=== PATIENT | female | born 1995 ===

== ENCOUNTER 2025-05-21 13:52 | Inpatient (IN) ==
[2025-05-21 14:26] LABS: RUPTURE OF MEMBRANES PLUS POSITIVE (NEGATIVE)
--- NOTE | 2025-05-21 14:37 | PROVIDER PROGRESS NOTE ---
HPI Current : Vital Signs Temperature 36.8 C 05/21/25 14:11 Pulse Rate 70 05/21/25 14:11 Respiratory Rate 16 05/21/25 14:11 Blood Pressure 133/82 H 05/21/25 14:11 Procedures Findings: 30 yo @ 36+5 weeks gestation presents to L&D following clinic encounter with suspected low ALNDRY and possible leaking of amniotic fluid. Reactive NST upon presentation FHT 140, moderate variability, + accelerations, - decelerations. Contractions q 2-3 minutes. Identifiable by patient but not painful. ROM + positive. Will admit for GBS prophylaxis to begin.
[2025-05-21] MEDS ORDERED: TRANEXAMIC ACID IN NACL 1,000 MG/100 ML BAG IV PRN (14:54)
[2025-05-21] MEDS ORDERED: TERBUTALINE 1 MG/ML VIAL SUBQ PRN (14:54)
[2025-05-21] MEDS ORDERED: CARBOPROST TROMETHAMINE 250 MCG/ML VIAL IM PRN (14:54)
[2025-05-21] MEDS ORDERED: LABETALOL 20 MG/4 ML SYRINGE IVP PRN ×3 (14:54)
[2025-05-21] MEDS ORDERED: fentaNYL 100 MCG/2 ML VIAL IVP PRN (14:54)
[2025-05-21] MEDS ORDERED: OXYTOCIN 10 UNIT/ML VIAL IM PRN (14:54)
[2025-05-21] MEDS ORDERED: hydrALAZINE INJ 20 MG/ML VIAL IVP PRN (14:54)
[2025-05-21] MEDS ORDERED: METHYLERGONOVINE 0.2 MG/ML VIAL IM PRN (14:54)
[2025-05-21] MEDS ORDERED: FERROUS SULFATE 325 MG TABLET PO SCH (15:00)
[2025-05-21] MEDS: SODIUM CHLORIDE FLUSH 0.9% 10 ML SYRINGE IVP PRN (15:18)
[2025-05-21] MEDS: AMPICILLIN 2 GM in SODIUM CHLORIDE 0.9% MINIBAG 100 ML IV ONE (15:22)
[2025-05-21 15:28] LABS: HCT - HEMATOCRIT 35.2 % (37.0-47.0); HGB - HEMOGLOBIN 11.5 g/dL (12.0-16.0); MEAN PLATELET VOLUME 9.9 fL (7.9-10.8); NRBC ABSOLUTE COUNT (AUTO) 0.00 x10^3/uL; NUCLEATED RED BLOOD CELLS AUTO 0.0 /100WBC; PLT - PLATELET COUNT 327 10^3/uL (130-450); RED CELL DISTRIBUTION WIDTH 13.7 % (12.0-15.0)
[2025-05-21 15:36] LABS: ALT ALANINE AMINOTRANSFERASE 8.0 IU/L (10-60); AST ASPARTATE AMINOTRANSFERASE 15.0 IU/L (10-42); BUN - BLOOD UREA NITROGEN 6.0 mg/dL (6-20); CARBON DIOXIDE - CO2 22.0 mmol/L (21-32); CREATININE 0.4 mg/dL (0.6-1.3); GFR - MDRD 185.0 (>89)
[2025-05-21] MEDS: SODIUM CHLORIDE FLUSH 0.9% 10 ML SYRINGE IVP SCH (16:28)
--- NOTE | 2025-05-21 17:29 | HISTORY & PHYSICAL EXAMINATION ---
Admit History Smoking Status: Never smoker Other Maternal History Other Maternal History: HPI: This 30 yo @36+5 weeks by LMP and confirmed by 10+2 week ultrasound. She was able to get sleep last night but the pain woke her up and they continued to become stronger and closer together. Upon arrival her cervical exam was deferred. SVE 4/80/-2 @ 1830 on day of admission. VTX by BSUS in the clinic and SVE. Feels things have progressed since her arrival to the unit but contractions are still tolerable. Reviewed risk of infection with prolonged rupture. Agreeable to initiating oxytocin if not progressing by 24 hours following suspected rupture of membranes. Timing of rupture unclear as the only fluid she noticed with light pink and mucousy. Munger the mucous change about 0430 so for timing sake, will call ROM 0430 on 05/21/2025. Reviewed that risks of labor include but are not limited to section, prolonged labor, vacuum extraction, episotomy, hemorrhage, and additional risks exist re: prolonged second stage related to extraction. Reviewed back up OBGYN is available for consultations, emergency interventions and transfer of care if indicted. She has been a patient of [facility] for the duration of her which has remained uncomplicated with the exception of hx of precipitous delivery, GDM A1, mild iron deficiency anemia ROS: No Headache, visual changes or right upper quadrant abdominal pain. Denies significant N/V. Denies urinary urgency or dysuria. All other symptoms reviewed and were negative except per HPI. In the event of an emergency, accepts the administration of blood products. Recent BP: 133/82 Labs: 11.5/35.2, PLT 327 Total maternal weight gain: 25# In the event of an emergency, ACCEPTS the administration of blood products OB hx: G1: ; 2018, female, precipitous delivery G2: EAB G3: SAB G4: EAB @ 22wks- Trisomy 21 G5: current PROBLEMS: -Hx Trisomy 21 fetus -NIPT drawn 11/21/2024- negative -Hx precipitous delivery -Discussed elective IOL -A1GDM -Mild anemia complicating -FeSO4 initiated -Ferritin 13.2 Medical Hx: Trisomy 21 fetus Surgical Hx: none Social Hx: Monogamous with male partner Esvin. 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 Stopped drinking alcohol due to . Denies current use of tobacco, marijuana or other recreational drugs. Reports that she is safe in current relationship. Family Hx: Denies family history of congenital anomalies, Cystic Fibrosis or chromosomal abnormalities; Muscular dystrophy - brother Allergies:NKDA Medications: NONE FOB Esvin LMP:09/06/24 LOGAN by LMP: 06/13/25 U/S: @ 10.2wks c/w LMP dating (LOGAN by U/S 06/17/2025) Final LOGAN: 06/13/2025 Pre- weight:123 BMI: 21.1 Blood type: A+ Antibody screen: neg CBC: H&H, PLT 12.6/37.9 284 Rubella: immune VZV: immune HBsAg: neg HepC: NR RPR/AB-EIA: NR HIV: NR Flu: 04/03/2025 COVID: x3, most recent 04/03/2025 PAP: 11/21/2024 GC/CT: 11/21/2024 neg HSV: denies in self and partner Genetic screening: NIPT collected 11/21/2024 - Negative AFP:Collected outside of collection window drawn at 32+5 weeks. Results disregarded. FAS: 01/31 Placenta: Anterior Cord: 3VC, marginal cord insertion 5MM R lateral placenta LANDRY: 14.8 EFW: 372g; 26%tile 50gm GCT: 167 3 hr GTT: 88,114,193,146 TDAP: 04/03/2025 Breast Pump: 03/06/25 3rd trimester H/H 9.9/30.4 PLT 322 Ferritin 13.2 RSV: 05/08/2025 GBS: positive Delivery plan: Desires unmedicated delivery contraception: Likely NFP and condoms; will likely intend another in the near future Physical exam: Normocephalic Lungs no increased work of bleeding Abdomen gravid, soft, nontender. EFW 3400g FHR baseline 140, moderate variability, + accelerations, no decelerations Contractions palpate mild to moderate every 2-3 minutes with soft resting tone SVE 4/80/-2, ruptured (scant amount of light pink fluid), VTX Bilateral LE's no edema Mood is good. Assessment: 30 yo @ 36+5 weeks gestation by wk U/S Premature rupture of membranes FHR 140 Cat I GBS POSITIVE Plan: Admit to [facility] for expectant management. Does not desire augmentation at this time. Will encourage breast pumping. If not progressed in dilation by 05/22/2025 @0430 will begin pitocin. GBS prophylaxis ampicillin q 4 hours until delivery Will hold keflex through her labor. Will plan to resume . Intermittent heart rate auscultation escalate to continuous monitoring as indicated Jacuzzi PRN. Nitrous oxide PRN. Desires unmedicated delivery. May have epidural PRN Maternal Request. Anticipate . HPI Current : Vital Signs Temperature 36.8 C 05/21/25 14:11 Pulse Rate 70 05/21/25 14:11 Respiratory Rate 16 05/21/25 14:11 Blood Pressure 133/82 H 05/21/25 14:11 Meds/Allgy Home Medications Ambulatory Orders Medication Instructions Recorded Confirmed ferrous sulfate 325 mg (65 mg 325 mg PO Q OTHER DAY #9 0 tabs 03/09/25 05/21/25 iron) tablet blood sugar diagnostic #100 ea 03/18/25 05/21/25 lancets #200 ea 03/18/25 05/21/25 lancets #200 ea 03/18/25 05/21/25 blood sugar diagnostic #100 ea 04/03/25 05/21/25 blood-glucose meter #1 ea 04/03/25 05/21/25 lancets #200 ea 04/03/25 05/21/25 breast pump #1 ea 05/21/25 05/21/25 Allergies Allergies Allergy/AdvReac Type Severity Reaction Status Date / Time No Known Drug Allergies Allergy Verified 05/21/25 13:14 PFSH Active Problems All Active Problems (Updated 05/21/25 @ 14:55 by JUAN Guidry) Group B Streptococcus carrier, antepartum (Acute) Premature rupture of membranes (Acute) Exposure to parvovirus (Acute) Anemia complicating , third trimester (Acute) Impaired glucose in , antepartum (Acute) Marginal insertion of umbilical cord affecting management of mother in second trimester (Acute) Supervision of normal (Acute) Medical History Medical History (Updated 05/21/25 @ 14:55 by JUAN Guidry) Trisomy 21, child of prior , currently Surgical History Surgical History (Updated 11/21/24 @ 11:05 by Catherine Garcia MA) No pertinent past surgical history Family History Family History (Updated 11/07/24 @ 10:35 by Radha Thomas RN) Brother Muscular dystrophy Social History Social History (Updated 02/09/25 @ 13:37 by JUAN Guidry) Smoking Status: Never smoker Do you dip or chew tobacco?: No ETOH Use: None Substance Use: denies use Physical Abdominal Exam Vital Signs: Temp Pulse Resp BP 36.8 C 70 16 133/82 H 05/21/25 14:11 05/21/25 14:11 05/21/25 14:11 05/21/25 14:11 Plan for Labor Plan For Labor I expect patient to be DC'd or transferred within 96 hours.: Yes Conclusion/Plan Problem List (1) Group B Streptococcus carrier, antepartum: (2) Premature rupture of membranes: (3) Impaired glucose in , antepartum: Lab Results 05/21/25 15:06 05/21/25 15:06
[2025-05-21 17:39] LABS: ESTIMATED AVERAGE GLUCOSE 120 mg/dL (70-100); HEMOGLOBIN A1c% 5.8 % (4.27-6.07)
--- NOTE | 2025-05-21 18:53 | PHARMACY PROGRESS NOTE ---
Best Possible Medication History Admit Date and Time: 05/21/25 1454 Home Medications Medication Instructions Recorded Confirmed Type ferrous sulfate 325 mg (65 mg 325 mg PO Q OTHER DAY #9 0 tabs 03/09/25 05/21/25 Rx iron) tablet blood sugar diagnostic #100 ea 03/18/25 05/21/25 Rx lancets #200 ea 03/18/25 05/21/25 Rx lancets #200 ea 03/18/25 05/21/25 Rx blood sugar diagnostic #100 ea 04/03/25 05/21/25 Rx blood-glucose meter #1 ea 04/03/25 05/21/25 Rx lancets #200 ea 04/03/25 05/21/25 Rx breast pump #1 ea 05/21/25 05/21/25 Rx Processed by: Pharmacy Medications reviewed in ED?: No Medication History completed: Yes Patient Interview: Completed [facility] Statement: As the person ultimately responsible for medication therapy, providers are able to order a medication from an existing home medication list in [facility] via the "Reconcile Routine" prior to Confirmation of that medication by ground crewman mission support. Such practice is discouraged except when the physician, in their clinical judgment, deems that a medical need exists for a medication without regard to previous use.
[2025-05-21] MEDS: LACTATED RINGERS 1,000 ML IV PRN (19:35)
[2025-05-21] MEDS: AMPICILLIN 1 GM in SODIUM CHLORIDE 0.9% MINIBAG 100 ML IV SCH (19:38)
--- NOTE | 2025-05-21 20:37 | PROVIDER PROGRESS NOTE ---
Subjective Subjective Subjective: Doing well, feels the contractions are stronger but still manageable. Irene q 2-4 minutes. Ambulating in room, rating pain up to 5/10vps with contractions. Contractions palpate moderate to strong. Scant amount of pink tinged amniotic to pad. Reviewed that she may ambulate in hallway, use birthing ball, birthing stool, tub as desired. 2nd dose of ampicillin now infusing. /FOB and 9 year old daughter in the room and will be her support in labor. FHR baseline 140, moderate variability, + acclerations, occasional variables but overall reassuring tracing. Primarily category I tracing. Current Medications Current Medications Current Medications: Current Medications Generic Name Dose Route Start Last Admin Trade Name Freq PRN Reason Stop Dose Admin Carboprost Tromethamine 250 mcg 05/21/25 14:54 Carboprost Tromethamine 250 Mcg/Ml Vial IM .ONCE PRN Hemorrhage Cephalexin 500 mg 05/21/25 16:00 Cephalexin 250 Mg Capsule PO Q12H GERBER Fentanyl 50 mcg 05/21/25 14:54 Fentanyl 100 Mcg/2 Ml Vial IVP Q1H PRN Severe Pain (score 7-10) Hydralazine HCl 5 - 10 mg 05/21/25 14:54 Hydralazine Inj 20 Mg/Ml Vial IVP Q20M PRN SBP> or= 160 OR DBP> or= 110 Protocol Lactated Ringer's 500 mls @ 999 mls/hr 05/21/25 14:54 Lr IV PRN PRN Heart Rate Abnormalities Oxytocin/Sodium Chloride 500 mls @ 999 mls/hr 05/21/25 14:54 Pitocin/Sodium Chloride IV PRN PRN POST- HEMORR PREVENTION Protocol 999 MILLIUNIT/MIN Tranexamic Acid 1,000 mg in 100 mls @ 600 mls/hr 05/21/25 14:54 Tranexamic 1,000 Mg/100ml-Nacl IV Q30M PRN EBL >1200mL and within 3hr Ampicillin Sodium 1 gm/ Sodium 100 mls @ 200 mls/hr 05/21/25 19:00 05/21/25 19:38 Chloride IV 200 mls/hr Q4H GERBER Administration Labetalol HCl 20 - 80 mg 05/21/25 14:54 Labetalol 20 Mg/4 Ml Syringe IVP Q10M PRN SBP> or= 160 OR DBP> or= 110 Protocol Labetalol HCl 20 mg 05/21/25 14:54 Labetalol 20 Mg/4 Ml Syringe IVP .ONCE PRN SBP> or= 160 OR DBP> or= 110 Protocol Labetalol HCl 20 - 40 mg 05/21/25 14:54 Labetalol 20 Mg/4 Ml Syringe IVP Q10M PRN SBP> or= 160 OR DBP> or= 110 Protocol Lidocaine HCl 20 ml 05/21/25 14:54 Lidocaine 1% 20 Ml Mdv ID 05/24/25 14:55 .ONCE PRN PERINEAL REPAIR Methylergonovine Maleate 0.2 mg 05/21/25 14:54 Methylergonovine 0.2 Mg/Ml Vial IM .ONCE PRN Hemorrhage Misoprostol 600 mcg 05/21/25 14:54 Misoprostol 200 Mcg Tablet BC .ONCE PRN Hemorrhage Misoprostol 800 mcg 05/21/25 14:54 Misoprostol 200 Mcg Tablet TN .ONCE PRN Hemorrhage Nifedipine 10 - 20 mg 05/21/25 14:54 Nifedipine 10 Mg Capsule PO Q20M PRN SBP> or= 160 OR DBP> or= 110 Protocol Oxytocin 10 unit 05/21/25 14:54 Oxytocin 10 Unit/Ml Vial IM .ONCE PRN Step One if no IV access. Sodium Chloride 10 ml 05/21/25 14:54 05/21/25 15:18 Sodium Chloride Flush 0.9% 10 Ml Syringe IVP 10 ml PRN PRN Administration NEEDED PER PROVIDER ORDERS Sodium Chloride 10 ml 05/21/25 15:00 05/21/25 16:28 Sodium Chloride Flush 0.9% 10 Ml Syringe IVP 10 ml Q8H GERBER Administration Terbutaline Sulfate 0.25 mg 05/21/25 14:54 Terbutaline 1 Mg/Ml Vial SUBQ .ONCE PRN Tachystole Objective Vital Signs/Intake & Output Vital Signs: Vital Signs x48h Temp Pulse Pulse Resp BP BP Pulse Ox 05/21/25 19:54 37.2 C 69 18 135/77 H 96 05/21/25 14:11 36.8 C 70 16 133/82 H Intake & Output: Intake & Output 05/18/25 05/19/25 05/20/25 05/21/25 23:59 23:59 23:59 23:59 Intake Total 700 / 700 Output Total Balance 699 / 699 Weight (kg) 148 lb Lab Results 05/21/25 15:06 05/21/25 15:06 Other Labs: Lab Results x24hrs 05/21/25 05/21/25 05/21/25 Range/Units 18:45 15:06 14:00 WBC 7.9 (4.8-10.8) x10^3/uL RBC 3.85 L (4.20-5.40) 10^6/uL Hgb 11.5 L (12.0-16.0) g/dL Hct 35.2 L (37.0-47.0) % MCV 91.4 (81.0-99.0) fL MCH 29.9 (27.0-31.0) pg MCHC 32.7 (32.0-36.0) g/dL RDW 13.7 (12.0-15.0) % Plt Count 327 (130-450) 10^3/uL MPV 9.9 (7.9-10.8) fL Neut # (Auto) 5.9 (1.5-6.6) 10^3/uL Lymph # (Auto) 1.5 (1.5-3.5) 10^3/uL [place] # (Auto) 0.4 (0.0-1.0) 10^3/uL Eos # (Auto) 0.1 (0.0-0.7) 10^3/uL Baso # (Auto) 0.0 (0.0-0.1) 10^3/uL Absolute Nucleated RBC 0.00 x10^3/uL Nucleated RBC % 0.0 /100WBC Sodium 136 (135-145) mmol/L Potassium 3.8 (3.5-4.5) mmol/L Chloride 106 (101-111) mmol/L Carbon Dioxide 22 (21-32) mmol/L Anion Gap 8.0 (6-13) BUN 6 (6-20) mg/dL Creatinine 0.4 L (0.6-1.3) mg/dL Estimated GFR (MDRD) 185 (>89) Glucose 90 (74-104) mg/dL POC Whole Bld Glucose 156 (70-100) mg/dL Estimat Average Glucose 120 H (70-100) mg/dL Hemoglobin A1c % 5.8 (4.27-6.07) % Calcium 8.8 (8.5-10.3) mg/dL Total Bilirubin 0.2 (0.2-1.0) mg/dL AST 15 (10-42) IU/L ALT 8 L (10-60) IU/L Alkaline Phosphatase 186 H (42-121) IU/L Total Protein 6.9 (6.4-8.9) g/dL Albumin 3.7 (3.2-5.5) g/dL Globulin 3.2 (2.1-4.2) g/dL Albumin/Globulin Ratio 1.2 (1.0-2.2) Membranes Rupture POSITIVE A (NEGATIVE) Blood Type A POSITIVE Antibody Screen NEGATIVE Assessment/Plan Problem List (1) Group B Streptococcus carrier, antepartum: (2) Premature rupture of membranes: (3) Impaired glucose in , antepartum:
--- NOTE | 2025-05-21 20:44 | PROVIDER PROGRESS NOTE ---
Subjective Subjective Subjective: Reviewed with nursing team to awaken me from the call room for any questions or concerns. Reviewed that I would like to be notified with any prolonged decelerations and if they chart category II tracing for greater than a 30 minute intervals. Discussed plan of care to initiate oxytocin for labor augmentation at 0430 without labor progression but that I can place the order for augmentation after a discussion at that time if needed. Current Medications Current Medications Current Medications: Current Medications Generic Name Dose Route Start Last Admin Trade Name Freq PRN Reason Stop Dose Admin Carboprost Tromethamine 250 mcg 05/21/25 14:54 Carboprost Tromethamine 250 Mcg/Ml Vial IM .ONCE PRN Hemorrhage Cephalexin 500 mg 05/21/25 16:00 Cephalexin 250 Mg Capsule PO Q12H GERBER Fentanyl 50 mcg 05/21/25 14:54 Fentanyl 100 Mcg/2 Ml Vial IVP Q1H PRN Severe Pain (score 7-10) Hydralazine HCl 5 - 10 mg 05/21/25 14:54 Hydralazine Inj 20 Mg/Ml Vial IVP Q20M PRN SBP> or= 160 OR DBP> or= 110 Protocol Lactated Ringer's 500 mls @ 999 mls/hr 05/21/25 14:54 Lr IV PRN PRN Heart Rate Abnormalities Oxytocin/Sodium Chloride 500 mls @ 999 mls/hr 05/21/25 14:54 Pitocin/Sodium Chloride IV PRN PRN POST- HEMORR PREVENTION Protocol 999 MILLIUNIT/MIN Tranexamic Acid 1,000 mg in 100 mls @ 600 mls/hr 05/21/25 14:54 Tranexamic 1,000 Mg/100ml-Nacl IV Q30M PRN EBL >1200mL and within 3hr Ampicillin Sodium 1 gm/ Sodium 100 mls @ 200 mls/hr 05/21/25 19:00 05/21/25 19:38 Chloride IV 200 mls/hr Q4H GERBER Administration Labetalol HCl 20 - 80 mg 05/21/25 14:54 Labetalol 20 Mg/4 Ml Syringe IVP Q10M PRN SBP> or= 160 OR DBP> or= 110 Protocol Labetalol HCl 20 mg 05/21/25 14:54 Labetalol 20 Mg/4 Ml Syringe IVP .ONCE PRN SBP> or= 160 OR DBP> or= 110 Protocol Labetalol HCl 20 - 40 mg 05/21/25 14:54 Labetalol 20 Mg/4 Ml Syringe IVP Q10M PRN SBP> or= 160 OR DBP> or= 110 Protocol Lidocaine HCl 20 ml 05/21/25 14:54 Lidocaine 1% 20 Ml Mdv ID 05/24/25 14:55 .ONCE PRN PERINEAL REPAIR Methylergonovine Maleate 0.2 mg 05/21/25 14:54 Methylergonovine 0.2 Mg/Ml Vial IM .ONCE PRN Hemorrhage Misoprostol 600 mcg 05/21/25 14:54 Misoprostol 200 Mcg Tablet BC .ONCE PRN Hemorrhage Misoprostol 800 mcg 05/21/25 14:54 Misoprostol 200 Mcg Tablet [place] .ONCE PRN Hemorrhage Nifedipine 10 - 20 mg 05/21/25 14:54 Nifedipine 10 Mg Capsule PO Q20M PRN SBP> or= 160 OR DBP> or= 110 Protocol Oxytocin 10 unit 05/21/25 14:54 Oxytocin 10 Unit/Ml Vial IM .ONCE PRN Step One if no IV access. Sodium Chloride 10 ml 05/21/25 14:54 05/21/25 15:18 Sodium Chloride Flush 0.9% 10 Ml Syringe IVP 10 ml PRN PRN Administration NEEDED PER PROVIDER ORDERS Sodium Chloride 10 ml 05/21/25 15:00 05/21/25 16:28 Sodium Chloride Flush 0.9% 10 Ml Syringe IVP 10 ml Q8H GERBER Administration Terbutaline Sulfate 0.25 mg 05/21/25 14:54 Terbutaline 1 Mg/Ml Vial SUBQ .ONCE PRN Tachystole Objective Vital Signs/Intake & Output Vital Signs: Vital Signs x48h Temp Pulse Pulse Resp BP BP Pulse Ox 05/21/25 19:54 37.2 C 69 18 135/77 H 96 05/21/25 14:11 36.8 C 70 16 133/82 H Intake & Output: Intake & Output 05/18/25 05/19/25 05/20/25 05/21/25 23:59 23:59 23:59 23:59 Intake Total 700 / 700 Output Total Balance 699 / 699 Weight (kg) 148 lb Lab Results 05/21/25 15:06 05/21/25 15:06 Other Labs: Lab Results x24hrs 05/21/25 05/21/2505/21/25 Range/Units 18:45 15:06 14:00 WBC 7.9 (4.8-10.8) x10^3/uL RBC 3.85 L (4.20-5.40) 10^6/uL Hgb 11.5 L (12.0-16.0) g/dL Hct 35.2 L (37.0-47.0) % MCV 91.4 (81.0-99.0) fL MCH 29.9 (27.0-31.0) pg MCHC 32.7 (32.0-36.0) g/dL RDW 13.7 (12.0-15.0) % Plt Count 327 (130-450) 10^3/uL MPV 9.9 (7.9-10.8) fL Neut # (Auto) 5.9 (1.5-6.6) 10^3/uL Lymph # (Auto) 1.5 (1.5-3.5) 10^3/uL [place] # (Auto) 0.4 (0.0-1.0) 10^3/uL Eos # (Auto) 0.1 (0.0-0.7) 10^3/uL Baso # (Auto) 0.0 (0.0-0.1) 10^3/uL Absolute Nucleated RBC 0.00 x10^3/uL Nucleated RBC % 0.0 /100WBC Sodium 136 (135-145) mmol/L Potassium 3.8 (3.5-4.5) mmol/L Chloride 106 (101-111) mmol/L Carbon Dioxide 22 (21-32) mmol/L Anion Gap 8.0 (6-13) BUN 6 (6-20) mg/dL Creatinine 0.4 L (0.6-1.3) mg/dL Estimated GFR (MDRD) 185 (>89) Glucose 90 (74-104) mg/dL POC Whole Bld Glucose 156 (70-100) mg/dL Estimat Average Glucose 120 H (70-100) mg/dL Hemoglobin A1c % 5.8 (4.27-6.07) % Calcium 8.8 (8.5-10.3) mg/dL Total Bilirubin 0.2 (0.2-1.0) mg/dL AST 15 (10-42) IU/L ALT 8 L (10-60) IU/L Alkaline Phosphatase 186 H (42-121) IU/L Total Protein 6.9 (6.4-8.9) g/dL Albumin 3.7 (3.2-5.5) g/dL Globulin 3.2 (2.1-4.2) g/dL Albumin/Globulin Ratio 1.2 (1.0-2.2) Membranes Rupture POSITIVE A (NEGATIVE) Blood Type A POSITIVE Antibody Screen NEGATIVE Assessment/Plan Problem List (1) Group B Streptococcus carrier, antepartum: (2) Premature rupture of membranes: (3) Impaired glucose in , antepartum:
[2025-05-21] MEDS: OXYTOCIN/SODIUM CHLORIDE 500 ML IV PRN (23:33)
[2025-05-22] MEDS ORDERED: NALOXONE 0.4 MG/ML VIAL IVP PRN (00:01)
[2025-05-22] MEDS ORDERED: SIMETHICONE CHEW 80 MG TABLET PO PRN (00:01)
[2025-05-22] MEDS ORDERED: ACETAMINOPHEN 500 MG TABLET PO PRN (00:01)
[2025-05-22] MEDS ORDERED: OXYTOCIN/SODIUM CHLORIDE 500 ML IV PRN (00:01)
[2025-05-22] MEDS ORDERED: hydrALAZINE INJ 20 MG/ML VIAL IVP PRN ×2 (00:01)
[2025-05-22] MEDS ORDERED: LABETALOL 20 MG/4 ML SYRINGE IVP PRN ×2 (00:01)
[2025-05-22] MEDS ORDERED: LABETALOL 5 MG/1 ML 20 ML MDV IVP PRN (00:01)
--- NOTE | 2025-05-22 00:01 | DELIVERY NOTE ---
OB Labor and Delivery Note Delivery Comments (Free Text/Narrative) Delivery Comments (Free Text/Narrative): This 30-year-old, G 5 P1121 @ 36+5 weeks gestation by 10+5 week ultrasound/ LMP was admitted this afternoon following confirmation of SROM. Believes she may have lost a small amount of amniotic fluid as early at 0400 today although unsure as it was just a small amount of mostly brown mucous. Cervical exam was initially deferred but she was 4/80/-2 prior to 1900 tonight. GBS positive, treated x2 doses ampicillin (adequately treated). She began laboring spontaneously and utilized the breastpump during periods when her contractions spaced out. FHR pattern demonstrated 140bpm baseline in a category I prior to second stage. Unmedicated labor. A large forebag was ruptured about about 22:00. Fluid remained clear and Kenneth was afebrile through her labor course. She then progressed feeling more increased rectal pressure, was assisted into various laboring positions (including hands and knees) with nursing staff prior to the urge to spontaneously push. Just prior to onset of second stage, a sign ificant amount of amniotic fluid presented and, presumably, rotation allowed for the rapid second stage (approximate 5 min second stage). She was supported through her labor and delivery by her . : Normal spontaneous vaginal delivery of a viable female on 05/21/2025 @ 2332. Nuchal x 1, reduced. Delivery was very controlled, allowing perineal stretching through delivery of head and spontaneous delivery of shoulders and body without maneuvers. At the time of shoulder delivery, an audible popping sound without identifiable source. The was placed on maternal abdomen, stimulated, dried and placed skin to skin. Apgars 8 & 9 @ 1 & 5 minutes. Following delivery of baby, a there was a single large gush of bleeding (approximately 300cc). Likely early placental separation as shortly thereafter, the cord stopped pulsating before was 2 minutes of life and was distinctly blanched. Discussed with family and nursing team the possibility of the popping originating from the collar bone/ possible fracture and possible evaluations to follow. On exam, baby had movement of bilateral upper extremities. The umbilical cord was was doubly clamped by delivering provider and cut by FOB. 3VC. Cord blood was obtained. Fundal massage and gentle cord traction applied for active management of the third stage, placenta easily delivered spontaneously and intact and appeared normal approximately 5 minutes following . EBL 350. Placenta was not sent to pathology. Pitocin administered via IV for hemostasis and allowed to run freely. Uterine massage was performed until uterus was deemed firm. weight 2776g. Inspection of the perineum noted to be intact. Upon re-inspection the patient was hemostatic. Uterus again massaged and found to be firm. Needle and sponge counts were correct. Uterine fundus firm and there is no excessive bleeding. Tissues well approximated. Skin to skin initiated. Family bonding well. Both mother and baby are in stable condition.
[2025-05-22] MEDS: DOCUSATE SODIUM 100 MG CAPSULE PO SCH (09:22)
[2025-05-22] MEDS: IBUPROFEN 600 MG TABLET PO PRN (19:59)
--- NOTE | 2025-05-22 21:27 | PROVIDER PROGRESS NOTE ---
Subjective Subjective Subjective: S: Bonding well with baby. without difficulty. Bleeding decreased and is light. Pain is well controlled with oral medications. She is urinating without difficulty. Has not yet had BM. is supportive at the bedside. O: Heart RRR w/o M/G/R, lungs CTAB, abdomen soft and nontender with fundus firm at U, perineum intact, light lochia rubra, bilateral LE's trace edema A: 30yo -->P2 PPD#1 s/p TSVD viable female infant Normal recovery P: Continue routine care and medications. Evaluate for discharge home tomorrow. Current Medications Current Medications Current Medications: Current Medications Generic Name Dose Route Start Last Admin Trade Name Freq PRN Reason Stop Dose Admin Acetaminophen 1,000 mg 05/22/25 00:01 Acetaminophen 500 Mg Tablet PO Q8HR PRN Mild Pain or Fever>38C(100.4F) Carboprost Tromethamine 250 mcg 05/21/25 14:54 Carboprost Tromethamine 250 Mcg/Ml Vial IM .ONCE PRN Hemorrhage Cephalexin 500 mg 05/22/25 09:30 05/22/25 21:25 Cephalexin 250 Mg Capsule PO 500 mg Q12H GERBER Administration Docusate Sodium 100 mg 05/22/25 09:00 05/22/25 21:25 Docusate Sodium 100 Mg Capsule PO 100 mg BID GERBER Administration Hydralazine HCl 10 mg 05/22/25 00:01 Hydralazine Inj 20 Mg/Ml Vial IVP .ONCE PRN SBP> or= 160 OR DBP> or= 110 Protocol Hydralazine HCl 5 - 10 mg 05/22/25 00:01 Hydralazine Inj 20 Mg/Ml Vial IVP Q20M PRN SBP >=160 and/or DBP >=110 Protocol Lactated Ringer's 500 mls @ 999 mls/hr 05/21/25 14:54 05/21/25 20:00 Lr IV Infused PRN PRN Infusion Heart Rate Abnormalities Tranexamic Acid 1,000 mg in 100 mls @ 600 mls/hr 05/21/25 14:54 Tranexamic 1,000 Mg/100ml-Nacl IV Q30M PRN EBL >1200mL and within 3hr Oxytocin/Sodium Chloride 500 mls @ 999 mls/hr 05/22/25 00:01 Pitocin/Sodium Chloride IV PRN PRN POST- HEMORR PREVENTION Protocol 999 MILLIUNIT/MIN Ibuprofen 600 mg 05/22/25 00:01 05/22/25 19:59 Ibuprofen 600 Mg Tablet PO 600 mg Q6HR PRN Administration Moderate Pain (Level 4-6) Labetalol HCl 20 - 80 mg 05/22/25 00:01 Labetalol 5 Mg/1 Ml 20 Ml Mdv IVP Q10M PRN SBP> or= 160 OR DBP> or= 110 Protocol Labetalol HCl 20 - 40 mg 05/22/25 00:01 Labetalol 20 Mg/4 Ml Syringe IVP Q10M PRN SBP> or= 160 OR DBP> or= 110 Protocol Labetalol HCl 20 mg 05/22/25 00:01 Labetalol 20 Mg/4 Ml Syringe IVP .ONCE PRN SBP >=160 and/or DBP >=110 Protocol Methylergonovine Maleate 0.2 mg 05/21/25 14:54 Methylergonovine 0.2 Mg/Ml Vial IM .ONCE PRN Hemorrhage Misoprostol 800 mcg 05/21/25 14:54 Misoprostol 200 Mcg Tablet GA .ONCE PRN Hemorrhage Nifedipine 10 - 20 mg 05/22/25 00:01 Nifedipine 10 Mg Capsule PO Q20M PRN SBP >=160 and/or DBP >=110 Protocol Oxytocin 10 unit 05/21/25 14:54 Oxytocin 10 Unit/Ml Vial IM .ONCE PRN Step One if no IV access. Simethicone 80 mg 05/22/25 00:01 Simethicone Chew 80 Mg Tablet PO TID PRN Gas Sodium Chloride 10 ml 05/21/25 15:00 05/22/25 09:24 Sodium Chloride Flush 0.9% 10 Ml Syringe IVP 10 ml Q8H GERBER Administration Terbutaline Sulfate 0.25 mg 05/21/25 14:54 Terbutaline 1 Mg/Ml Vial SUBQ .ONCE PRN Tachystole Objective Vital Signs/Intake & Output Vital Signs: Vital Signs x48h Temp Pulse Resp BP 05/22/25 19:35 98.4 F 63 16 121/83 05/22/25 15:57 98.6 F 78 16 129/68 Intake & Output: Intake & Output 05/19/25 05/20/25 05/21/25 05/22/25 23:59 23:59 23:59 23:59 Intake Total 890 / 890 500 / 500 Output Total 1000 / 1000 Balance 889 / 889 -500 / -500 Weight (kg) 148 lb Lab Results 05/21/25 15:06 05/21/25 15:06 Assessment/Plan Problem List (1) Group B Streptococcus carrier, antepartum: (2) Premature rupture of membranes: (3) Impaired glucose in , antepartum:
[2025-05-23 07:39] VITALS: O2SAT 99
--- NOTE | 2025-05-23 12:05 | Discharge Summary ---
Discharge Summary HOSPITAL COURSE Hospital Course: Date of Admission: 05/21/2025 Date of Discharge: 05/23/2025 Diagnosis on Admission: 1. 30 yo @ 36+5 weeks gestation by wk U/S 2. Premature rupture of membranes 3. FHR 140 Cat I 4. GBS POSITIVE Diagnosis on Discharge: 1. 30yo PPD#1 s/p TSVD viable female infant 2. 3. Normal recovery Brief History: She is a patient of [facility] who presented on 05/21/2025 with suspected rupture of membranes. ROM+ was positive. Cervix was 4/80/-2 and vertex. She spontaneously progressed to deliver a viable female infant on 03/21/2025 @ 2332. Perineum intact. Apgars were 8/9 at 1 and 5 minutes respectively. QBL 300 mL. She has been doing well in her course. She is ambulating and tolerating a regular diet. She is urinating without difficulty and her lochia is normal. Her pain is well controlled with oral medications. She will be discharged home today on day #1 with instructions to continue taking her vitamin while and to continue taking Ibuprofen and Tylenol over the counter as needed for pain management. She intends to follow up with myself at [facility] in 1 week for routine visit or sooner if needed. She has been given precautions to call if she has any worsening fevers, chills, abdominal pain, increased vaginal bleeding or foul smelling vaginal lochia. Physical Exam: Normocephalic, atraumatic. Heart RRR w/o M/G/R, lungs CTAB, abdomen soft and nontender with fundus firm at U-2, perineum intact, light lochia rubra, bilateral LE's no edema. Mood is good. ALLERGIES Allergies Allergy/AdvReac Type Severity Reaction Status Date / Time No Known Drug Allergies Allergy Verified 05/23/25 07:34 MEDICATIONS Ambulatory Orders Medication Instructions Recorded Confirmed ferrous sulfate 325 mg (65 mg 325 mg PO Q OTHER DAY #9 0 tabs 03/09/25 05/21/25 iron) tablet breast pump #1 ea 05/21/25 05/21/25 PHYSICAL EXAM AT DISCHARGE Vital Signs: Vital Signs x48h Temp Pulse Pulse Resp BP Pulse Ox 05/23/25 07:39 98.2 F 62 14 129/74 99 05/23/25 05:30 98.1 F 56 L 15 122/75 LABS 05/21/25 15:06 05/21/25 15:06 Discharge Plan Discharge Patient Disposition: 01 Home, Self Care Prescriptions: Continued ferrous sulfate 325 mg (65 mg iron) tablet 325 mg PO Q OTHER DAY Qty: 90 4RF Discontinued (DME) blood sugar diagnostic Strip See Rx Instructions .ROUTE .MEDSUPPLY Qty: 100 4RF Rx Instructions: 4 times per day via meter as directed (DME) lancets Misc See Rx Instructions .ROUTE .MEDSUPPLY Qty: 200 4RF Rx Instructions: 4 times per day as directed (DME) lancets Misc See Rx Instructions .ROUTE .MEDSUPPLY Qty: 200 4RF Rx Instructions: 4 times per day as directed (DME) blood sugar diagnostic Strip See Rx Instructions .ROUTE .MEDSUPPLY Qty: 100 4RF Rx Instructions: 4 times per day via meter as directed (DME) lancets Misc See Rx Instructions .ROUTE .MEDSUPPLY Qty: 200 4RF Rx Instructions: 4 times per day as directed (DME) blood-glucose meter Kit See Rx Instructions .ROUTE .MEDSUPPLY Qty: 1 0RF Rx Instructions: 4 times per day as directed No Action (DME) breast pump Device See Rx Instructions .MEDSUPPLY Qty: 1 0RF Rx Instructions: As directed Print Language: Japanese Patient Instructions: After a Vaginal , : Caring for Yourself
[2025-05-23 14:18] VITALS: BP 116/80; TEMP 98.4
--- NOTE | 2025-05-23 15:03 | Labor Flowsheet ---
Labor Flowsheet Datetime Report Generated by CPN: 05/23/2025 15:03 Datetime: 05/23/2025 14:09 VITAL SIGNS NBP Sys/Amie/Mean (mmHg): 116 : 80 : 87 Pulse: 65 Datetime: 05/22/2025 19:34 SpO2 (%): 99 Datetime: 05/22/2025 00:00 Stage of : Recovery Datetime: 05/21/2025 23:38 Communication Comments: placenta out Datetime: 05/21/2025 23:32 Comments: Delivery of alive baby girl Datetime: 05/21/2025 23:24 Monitor Interventions for FHR: Ultrasound Adjusted Datetime: 05/21/2025 23:23 Patient Position/Activity: Right Extreme Patient Care Comments: Patient changed position flexing knees Datetime: 05/21/2025 23:20 ASSESSMENT A Monitor Mode: External US FHR Baseline Rate : 145 Oxygen Method: Room Air COMMUNICATION Communication: RN at Bedside; Provider at Bedside Datetime: 05/21/2025 23:15 Respirations: 18 VAGINAL EXAM Dilatation (cm): 9.0 Effacement (%): 100 Station: 2 Exam by: Noris B CMN LaborFlag: Labor Datetime: 05/21/2025 23:00 Variability: Moderate 6-25 bpm Accelerations: 15X15 Decelerations: None Category: Category I Datetime: 05/21/2025 22:30 UTERINE ACTIVITY Monitor Mode: External Frequency (min): 2-2.5 Quality: Strong Duration (sec): 70-110 Pattern: Normal: <= 5 Contractions in 10 Minutes Resting Tone (Palpate): Relaxed Datetime: 05/21/2025 22:08 Vaginal Bleeding: Normal Show Datetime: 05/21/2025 21:45 Temperature (C): 37.1 Datetime: 05/21/2025 21:00 FHR Baseline Changes: No Baseline Change Membrane Status: Ruptured Datetime: 05/21/2025 19:54 MATERNAL ASSESSMENT Level of Consciousness: Alert DTR's/Clonus: No Clonus Headache: Denies Breath Sounds, Left: Clear and Equal Breath Sounds, Right: Clear and Equal Nausea/Vomiting: Denies RUQ Epigastric Pain: Denies Datetime: 05/21/2025 19:38 MEDICATIONS Antibiotics: Ampicillin IV 1 Gm Datetime: 05/21/2025 18:59 Monitor Interventions for UA: Royal Adjusted Datetime: 05/21/2025 18:50 Membranes Ruptured Date/Time: 05/21/2025 04:30 Membranes Rupture Method: Spontaneous Amniotic Fluid Color: Clear Amniotic Fluid Amount: Moderate Amniotic Fluid Odor: Normal Datetime: 05/21/2025 18:45 Bedside Blood Glucose: 156 Actions for Decelerations: Provider Notified Datetime: 05/21/2025 18:16 Provider Reviewed Strip: Yes Provider Notified (Name): Burckhardt CNM Datetime: 05/21/2025 15:16 PATIENT CARE IV/Blood Work: IV Started; Labs Drawn with IV Start Datetime: 05/21/2025 14:10 Temperature Route: Oral
== END 2025-05-23 14:30 | disposition home or self-care (01) | DRG 805 ==
LOC: WFO 13:52 → FBP 13:54
PROVIDERS: ADMIT Nurse Practitioner; ATTEND Nurse Practitioner